=== PATIENT | female | born 2000 | race Caucasian/White ===

== ENCOUNTER → 2021-09-04 12:29 | Outpatient (CLI) | payer OTHER, SELFPAY ==
--- NOTE | ~2021-09-04 | MR_ITS ---
EXAMINATION: MR shoulder RT wo con DATE: 09/04/2021 13:30 INDICATION: Right shoulder pain. TECHNIQUE: Magnetic resonance imaging (MRI) of the right shoulder was performed without intravenous c ontrast. Sequences included axial PD-weighted FS FSE, coronal oblique PD-weighted FS FSE, coronal obl ique T2-weighted FS FSE, sagittal PD-weighted FS FSE, and sagittal T1-weighted SE. COMPARISON: None. FINDINGS: Coracoacromial arch: The acromion undersurface is flat in morphology (type I). The coracoacromial ligament is normal. Acro mioclavicular joint is normal. Rotator cuff: The supraspinatus, infraspinatus and teres minor tendons are normal. The subscapularis tendon is norm al. Normal rotator cuff muscle bulk and signal. Biceps tendon, glenoid labrum and glenohumeral cartilage: Long head of the biceps tendon is normal. Normal labrum with normal variant sublabral sulcus with smo oth margins at the chondral labral junction at the base of the anterosuperior labrum. Glenohumeral ca rtilage is normal. Fluid: Physiologic amount of fluid in the glenohumeral joint and biceps tendon sheath. No loose osteochondr al bodies. Very small amount of fluid in the subacromial/subdeltoid bursa underlying the lateral deborah in of the acromion consistent with minimal bursitis. Bones: Normal marrow signal with no edema, fracture or abnormal marrow replacing process. IMPRESSION: 1. Minimal subacromial/subdeltoid bursitis. Otherwise normal MRI of the right shoulder. Reviewed, dictated and finalized at location B. IMPRESSION: 1. Minimal subacromial/subdeltoid bursitis. Otherwise normal MRI of the right s [place].
--- NOTE | ~2021-09-04 | MR_ITS ---
EXAMINATION: MR elbow RT wo con DATE: 09/04/2021 13:48 INDICATION: Posterior right elbow pain TECHNIQUE: Magnetic resonance imaging (MRI) of the right elbow was performed without intravenous cont rast. Sequences included coronal, axial, and sagittal PD-weighted FS FSE and coronal, axial, and sagi ttal PD-weighted FSE. COMPARISON: None FINDINGS: Osseous/other: Normal alignment. Normal marrow signal with no marrow edema, fracture, osteochondral lesion or abnor mal marrow replacing process. There is intermediate signal intensity tissue replacing the normal subc utaneous fat posterior to the tip the olecranon. This could represent either a thickened and collapse d olecranon bursa or potentially scarring related to old trauma. No evident surrounding edema or inte rnal fluid to suggest acute bursitis. Tendons: Triceps, biceps brachii and brachialis tendons are normal. Common flexor tendon wad is normal. The c ommon extensor tendon wad is normal. Ligaments: The medial and lateral collateral ligament complexes are normal. Cubital tunnel: Cubital tunnel is unremarkable with normal signal and caliber of the ulnar nerve. Fluid: Physiologic amount of fluid the elbow joint. IMPRESSION: 1. Soft tissue posterior to the olecranon which could represent scarring related to either chronic bu rsitis or trauma. Otherwise unremarkable right elbow MRI. Reviewed, dictated and finalized at location B. IMPRESSION: 1. Soft tissue posterior to the olecranon which could represent scarring relate d to either chronic bursitis or trauma. Otherwise unremarkable right elbow MRI.
== END ==
PROVIDERS: PCP Pediatrics
DX: M25.511 Pain in right shoulder (principal); M75.51 Bursitis of right shoulder; M25.521 Pain in right elbow
CPT/HCPCS: 73221